=== PATIENT | female | born 1980 | race Caucasian/White ===

== ENCOUNTER 2020-04-09 10:32 | Emergency (ER) | payer BC ==
[2020-04-09 10:44] VITALS: BP 156/100
--- NOTE | 2020-04-09 10:57 | ER Document Report ---
ED Medical Screen (RME) - General Stated Complaint: CHEST PAIN Time Seen by Provider: 04/09/20 10:51 Primary Care Provider: NOHEMI ANNE MD [Primary Care Provider] - Follow up as needed - [facility] Notes: 04/09/20 10:56 40-year-old female presents to the emergency room today for evaluation of substernal chest pain that started roughly 20 minutes ago that radiates bilaterally to her back and to her stomach. She does endorse shortness of breath that is worse on exertion, reports that the pain is "crushing", pain is 5/5 earlier, now is 4/5. Denies any nausea vomiting diarrhea, fevers chills. Patient is a non-smoker. She reports her father had multiple MIs, had triple bypass done in May 2019, mother had a minor heart attack in October 2019. Reports she did have a cholecystectomy done in 2017. Does not have any cardiac issues. I have greeted and performed a rapid initial assessment of this patient. A comprehensive ED assessment and evaluation of the patient, analysis of test results and completion of the medical decision making process will be conducted by additional ED providers. PHYSICAL EXAMINATION: GENERAL: Well-appearing, well-nourished and in no acute distress. HEAD: Atraumatic, normocephalic. NECK: Normal range of motion CV: s1, s2 regular LUNGS: No respiratory distress Musculoskeletal: Normal range of motion NEUROLOGICAL: Normal speech, normal gait. SKIN: Warm, Dry, normal turgor, no rashes or lesions noted. The patient was evaluated during a global COVID-19 pandemic and that diagnosis was suspected/considered upon their initial presentation. Their evaluation, treatment and testing was consistent with current guidelines for patients who present with complaints or symptoms and may be related to COVID-19. - Related Data Allergies/Adverse Reactions: Sulfa (Sulfonamide Antibiotics) Allergy (Verified 02/25/13 17:00) Past Medical History Renal/ Medical History: Reports: Hx Kidney Stones - Immunizations Hx Diphtheria, Pertussis, Tetanus Vaccination: Yes Physical Exam - Vital signs Vitals: Temp Pulse Resp BP Pulse Ox 97.8 F 70 20 156/100 H 100 04/09/20 10:40 04/09/20 10:40 04/09/20 10:40 04/09/20 10:40 04/09/20 10:40 Course - Vital Signs Vital signs: Temp Pulse Resp BP Pulse Ox 97.8 F 70 20 156/100 H 100 04/09/20 10:40 04/09/20 10:40 04/09/20 10:40 04/09/20 10:40 04/09/20 10:40 Doctor's Discharge - Discharge Referrals: NOHEMI ANNE MD [Primary Care Provider] - Follow up as needed
[2020-04-09 11:15] LABS: ABSOLUTE BASOPHILS # (AUTO) 0.1 10^3/uL (0.0-0.2); ABSOLUTE EOSINOPHILS # (AUTO) 0.1 10^3/uL (0.0-0.6); ABSOLUTE LYMPHOCYTES (AUTO) 1.8 10^3/uL (0.5-4.7); ABSOLUTE MONOCYTES (AUTO) 0.4 10^3/uL (0.1-1.4); ABSOLUTE NEUT (AUTO) 3.5 10^3/uL (1.7-8.2); EOSINOPHILS % (AUTO) 2.2 % (0-6); LYMPHOCYTES % (AUTO) 30.9 % (13-45); MEAN CORPUSCULAR HEMOGLOBIN 24.2 pg (27.0-33.4); MEAN CORPUSCULAR HGB CONC 32.5 g/dL (32.0-36.0); MEAN CORPUSCULAR VOLUME 74 fl (80-97); MONOCYTES % (AUTO) 6.1 % (3-13); PLATELET COUNT 282 10^3/uL (150-450); RED BLOOD COUNT 5.37 10^6/uL (3.72-5.28); RED CELL DISTRIBUTION WIDTH 16.1 % (11.5-14.0); SEGMENTED NEUTROPHILS % (AUTO) 59.8 % (42-78); TOTAL CELLS COUNTED % (AUTO) 100 %; WHITE BLOOD COUNT 5.8 10^3/uL (4.0-10.5)
--- NOTE | 2020-04-09 11:37 | RADIOLOGY REPORT (SQ) ---
EXAM DESCRIPTION: CHEST SINGLE VIEW IMAGES COMPLETED DATE/TIME: 04/09/2020 11:10 am REASON FOR STUDY: chest pain COMPARISON: None. EXAM PARAMETERS: NUMBER OF VIEWS: One view. TECHNIQUE: Single frontal radiographic view of the chest acquired. RADIATION DOSE: NA LIMITATIONS: None. FINDINGS: LUNGS AND PLEURA: No opacities, masses or pneumothorax. No pleural effusion. MEDIASTINUM AND HILAR STRUCTURES: No masses. Contour normal. HEART AND VASCULAR STRUCTURES: Heart normal in size. Normal vasculature. BONES: No acute findings. HARDWARE: None in the chest. OTHER: No other significant finding. IMPRESSION: 1. NO ACUTE RADIOGRAPHIC FINDING IN THE CHEST. TECHNICAL DOCUMENTATION: JOB ID: [id number] 2010 [employer] All Rights Reserved Reading location - IP/workstation name: [email or web address]
[2020-04-09 11:40] LABS: ALBUMIN 4.2 g/dL (3.5-5.0); ALKALINE PHOSPHATASE 92 U/L (38-126); ANION GAP 5 (5-19); ASPARTATE AMINO TRANSFERASE 59 U/L (14-36); BILIRUBIN,DIRECT 0.1 mg/dL (0.0-0.4); BILIRUBIN,TOTAL 0.7 mg/dL (0.2-1.3); BLOOD UREA NITROGEN 10 mg/dL (7-20); CALCIUM 9.2 mg/dL (8.4-10.2); CARBON DIOXIDE 27 mmol/L (22-30); CHLORIDE 107 mmol/L (98-107); CREATINE KINASE 122 U/L (30-135); GLUCOSE 98 mg/dL (75-110); POTASSIUM 3.9 mmol/L (3.6-5.0); TOTAL PROTEIN 7.1 g/dL (6.3-8.2)
[2020-04-09 11:50] LABS: CREATINE KINASE MB 0.73 ng/mL (<4.55)
[2020-04-09 11:51] LABS: TROPONIN I < 0.012 ng/mL
--- NOTE | 2020-04-09 12:32 | EKG REPORT ---
SEVERITY:- NORMAL ECG - SINUS RHYTHM : Confirmed by: Imer Meyer MD 09-Apr-2020 12:31:45
[2020-04-09] MEDS ORDERED: METOCLOPRAMIDE HCL ORAL SOLN 10 MG/10 ML UDCUP PO ONE (13:23)
[2020-04-09] MEDS ORDERED: LIDOCAINE 2% VISCOUS SOLN 15 ML UDCUP PO ONE (13:23)
[2020-04-09] MEDS ORDERED: MAG HYDROX/AL HYDROX/SIMETH SUSP 30 ML UDCUP PO ONE (13:23)
--- NOTE | 2020-04-09 13:24 | ER Document Report ---
ED General - General Chief Complaint: Shortness Of Breath Stated Complaint: CHEST PAIN Time Seen by Provider: 04/09/20 10:51 Primary Care Provider: LARRY DEE MD [ACTIVE STAFF] - Follow up in 3-5 days MARTIN BERNAL MD [ACTIVE STAFF] - Follow up tomorrow NOHEMI ANNE MD [ACTIVE STAFF] - Follow up as needed - [facility] Notes: Patient is a 40-year-old female with a past medical history of PCOS who presents with chest pain. Patient states symptoms began this morning at work around 10 AM. She states that she was eating a protein bar and just finished half a cup of coffee and developed tightness in her chest that was sudden. She states it radiated down to her upper stomach. She tried to walk it off but the symptoms would not resolve. She also drink water. Her boss suggested she go to the ER. Patient states she has some discomfort with trying to take a deep breath in. She feels like she cannot take a deep breath due to pain. She denies any shortness of breath. No cough or recent illnesses. No fevers or chills. Patient states she has never had pain like this before. She is a former smoker and quit 8 years ago. Patient has a family history of heart disease. She denies high cholesterol or high blood pressure. She has never had a DVT or PE. She denies any leg swelling. She has had several long car rides recently within the last month. Patient mentions she has had gastritis before and had her gallbladder removed. This feels somewhat different than that. - Related Data Allergies/Adverse Reactions: Sulfa (Sulfonamide Antibiotics) Allergy (Verified 02/25/13 17:00) Home Medications: OTC MVI Past Medical History - General Information source: Patient - Social History Smoking Status: Former Smoker Chew tobacco use (# tins/day): No Frequency of alcohol use: Rare Drug Abuse: None Family History: Reviewed & Not Pertinent Renal/ Medical History: Reports: Hx Kidney Stones - Immunizations Hx Diphtheria, Pertussis, Tetanus Vaccination: Yes Review of Systems - Review of Systems Notes: CONSTITUTIONAL: No fever, fatigue or weight loss. SKIN: No rash. HENT: No congestion, ear pain, or sore throat. ENDOCRINE: No thyroid problems. No polyuria or polydipsia. CARDIOVASCULAR: No chest pain or edema. RESPIRATORY: No cough, shortness of breath, congestion. Positive for chest tightness. GASTROINTESTINAL: No nausea, vomiting, bloody stools or diarrhea. Positive for epigastric pain. GENITOURINARY: No dysuria. MUSCULOSKELETAL: No joint pain or swelling. NEUROLOGIC: No seizures. No headache, focal weakness or sensory changes. HEMATOLOGIC: No unusual bruising or bleeding. PSYCHIATRIC: No depression or anxiety. Physical Exam - Vital signs Vitals: Temp Pulse Resp BP Pulse Ox 97.8 F 70 20 156/100 H 100 04/09/20 10:40 04/09/20 10:40 04/09/20 10:40 04/09/20 10:40 04/09/20 10:40 - General General appearance: Appears well In distress: None Notes: VITAL SIGNS: Within normal limits. GENERAL: No acute distress, non-toxic appearance. HEAD: Normal with no signs of head trauma. EYES: Conjunctiva normal, no discharge. EARS: Hearing grossly intact. NOSE: Normal. NECK: Normal range of motion, no tenderness, supple CHEST: Clear breath sounds bilaterally. No wheezes, rales, or rhonchi. CARDIAC: Regular rate and rhythm. S1 and S2, without murmurs, gallops, or rubs. VASCULAR: No Edema. Strong bilateral radial pulses. ABDOMEN: Normal and soft. No significant tenderness to epigastric area. No guarding or rigidity. MUSCULOSKELETAL: Good range of motion of all major joints. Extremities without clubbing, cyanosis or edema. NEUROLOGICAL: Alert and oriented x 3. No focal sensory or strength deficits. Speech normal. Follows commands appropriately. PSYCHIATRIC: Normal Affect, judgement and mood. SKIN: Normal appearance with no rashes or lesions. Course - Re-evaluation Re-evalutation: 04/09/20 13:33 Patient appears well on exam. She is resting comfortably. So far, her work-up is unremarkable. I will add a D-dimer as she recently had a long car travel. Patient will be tried on a GI cocktail. 04/09/20 20:10 She had a positive lipase. She did mention she had pancreatitis before from gallstones but her gallbladder was removed during this episode in 2018. I did discuss with Dr. Bernal from GI. He recommended I obtain an ultrasound of her right upper quadrant. He states that if this is normal, she can likely be discharged home on clear liquids and pain control as patient is not having any significant pain and is resting comfortably and is tolerating liquids in the ER. Her ultrasound had a normal CBD. 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 I discussed this with the patient. She states that she has seen nephrology for this. 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 Her urine does not show an infection. I did recommend she follow-up with Dr. Dee again about this. I also recommended urology but she states she would just rather see nephrology as she is already seen urology in the past and was referred to nephrology. I did offer her admission for pain control and IV fluids but patient declined. She stated she can go home and is comfortable being managed as an outpatient. I told her to call GI first thing tomorrow morning for follow-up. Patient was given hydrocodone and Zofran. She was told to eat clear liquids. She is very agreeable to the plan. She will return for any worsening pain. She is in no acute distress. She is resting comfortably. Patient is tolerating water in the ER. - Vital Signs Vital signs: Temp Pulse Resp BP Pulse Ox 97.8 F 70 20 156/100 H 100 04/09/20 10:40 04/09/20 10:40 04/09/20 10:40 04/09/20 10:40 04/09/20 10:52 - Laboratory Results Result Diagrams: 04/09/20 11:05 04/09/20 11:05 Laboratory Results Interpreted: 04/09/20 04/09/20 04/09/20 11:05 11:05 11:05 RBC 5.37 H MCV 74 L MCH 24.2 L RDW 16.1 H AST 59 H Lipase 4976.9 H Urine Ketones Urine Blood Ur Leukocyte Esterase 04/09/20 18:30 RBC MCV MCH RDW AST Lipase Urine Ketones TRACE H Urine Blood SMALL H Ur Leukocyte Esterase TRACE H Critical Laboratory Results Reviewed: No Critical Results - Radiology Results Critical Radiology Results Reviewed: No Critical Results - EKG Interpretation by Me EKG shows normal: Sinus rhythm Rate: Normal Rhythm: NSR When compared to previous EKG there are: Previous EKG unavailable Additional EKG results interpreted by me: 04/09/20 13:34 Sinus rhythm at a rate of 68. QTc 422. No acute ST changes. Artifact present. No previous EKG immediately available for comparison. Discharge - Discharge Clinical Impression: Epigastric pain Pancreatitis Qualifiers: Chronicity: acute Pancreatitis type: unspecified pancreatitis type Acute pancreatitis complication: no infection or necrosis Qualified Code(s): K85.90 - Acute pancreatitis without necrosis or infection, unspecified Condition: Stable Disposition: HOME, SELF-CARE Instructions: Pancreatitis ([facility]) Additional Instructions: Please eat a liquid diet until you feel better. Follow-up with GI. Please call their office first thing tomorrow morning for an appointment. Return to the ER immediately for any fevers, chills, nausea, vomiting, worsening symptoms. 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 Prescriptions: Ondansetron [Zofran Odt 4 mg Tablet] 4 mg PO Q6H PRN 7 Days #10 tab.rapdis PRN Reason: Referrals: NOHEMI ANNE MD [ACTIVE STAFF] - Follow up as needed LARRY DEE MD [ACTIVE STAFF] - Follow up in 3-5 days MARTIN BERNAL MD [ACTIVE STAFF] - Follow up tomorrow
[2020-04-09] MEDS ORDERED: NORMAL SALINE 1000 ML 1,000 ML IV ONE (14:53)
--- NOTE | 2020-04-09 17:39 | RADIOLOGY REPORT (SQ) ---
EXAM DESCRIPTION: U/S ABDOMEN LTD W/DOPPLER IMAGES COMPLETED DATE/TIME: 04/09/2020 5:12 pm REASON FOR STUDY: high lipase, hx of cholecystectomy COMPARISON: None. TECHNIQUE: Dynamic and static grayscale images acquired of the abdomen and recorded on PACS. Additio nal selected color Doppler and spectral images recorded. LIMITATIONS: None. FINDINGS: PANCREAS: No masses. Visualized pancreatic duct normal caliber. LIVER: Increased echogenicity. No masses. LIVER VASCULATURE: Normal directional flow of the main portal vein and hepatic veins. GALLBLADDER: Surgically absent. ULTRASOUND-DETECTED BARAHONA'S SIGN: Not applicable. INTRAHEPATIC DUCTS AND COMMON DUCT: CBD and intrahepatic ducts normal caliber. No filling defects. AORTA: No aneurysm. RIGHT KIDNEY: Normal size, 13 cm. Normal echogenicity. No solid or suspicious masses. Moderate hydr onephrosis in the upper calices. No calcifications. PERITONEAL AND RIGHT PLEURAL SPACE: No ascites or effusions. OTHER: No other significant findings. IMPRESSION: 1. Hepatic steatosis. 2. 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 TECHNICAL DOCUMENTATION: JOB ID: [id number] 2010 [employer]- All Rights Reserved Reading location - IP/workstation name: [email or web address]
[2020-04-09 18:56] LABS: APPEARANCE,URINE CLEAR; BILIRUBIN,URINE NEGATIVE (NEGATIVE); COLOR,URINE YELLOW; GLUCOSE, URINE NEGATIVE (NEGATIVE); KETONES,URINE TRACE mg/dL (NEGATIVE); LEUKOCYTE ESTERASE,URINE TRACE (NEGATIVE); NITRITE,URINE NEGATIVE (NEGATIVE); PROTEIN,URINE NEGATIVE (NEGATIVE); URINE SPECIFIC GRAVITY 1.012; UROBILINOGEN,URINE NEGATIVE mg/dL (<2.0)
[2020-04-09] MEDS ORDERED: HYDROCODONE/ACETAMINOPHEN 5-325 MG (6 TAB/ER DISP) PO PRN (19:10)
== END 2020-04-09 19:00 | disposition home or self-care (01) ==
LOC: ER 10:32
DX: K85.90 Acute pancreatitis without necrosis or infection, unspecified (principal); K76.0 Fatty (change of) liver, not elsewhere classified; N13.30 Unspecified hydronephrosis; R10.13 Epigastric pain; R07.89 Other chest pain; Z87.891 Personal history of nicotine dependence; Z79.899 Other long term (current) drug therapy; Z90.49 Acquired absence of other specified parts of digestive tract; Z88.2 Allergy status to sulfonamides; Z82.49 Family history of ischemic heart disease and other diseases of the circulatory system
CPT/HCPCS: 93005; 99285; 96360; 36415; 87086; 82553; 82550; 84702; 83690; 85025; 80053; 81001; 84484; 85379; 71045; 76705; 93976; 93010; J3490; J7030

== ENCOUNTER → 2020-04-11 | Outpatient (CLI) | payer BC | LOC: OD 14:54 | PROVIDERS: ATTEND Nurse Practitioner Family | DX: K85.90 Acute pancreatitis without necrosis or infection, unspecified (principal) | CPT/HCPCS: 36415 ==

== ENCOUNTER 2020-04-18 08:10 | Day surgery (SDC) | payer BC ==
[~2020-04-18 08:10] MED LIST: PROPOFOL INJ 200 MG/20 ML VIAL IV ONE
--- NOTE | 2020-04-18 09:21 | Operative Report ---
Operative Report DATE OF SURGERY: 04/18/20 Operative Report: The risks benefits and alternatives of the procedure explained to the patient in detail and informed consent is obtained.A GIF Olympus video scope was inserted into the patient's mouth and hypopharynx, the esophagus is identified intubated and insufflated, the scope was then advanced through the esophagus stomach and duodenum ,retroflexion maneuver is done, the esophagus stomach and first and second portions of the duodenum examined PREOPERATIVE DIAGNOSIS: Epigastric pain rule out peptic ulcer disease POSTOPERATIVE DIAGNOSIS: Gastritis with small gastric erosions status post biopsy OPERATION: EGD with biopsy SURGEON: MARTIN TORRES ANESTHESIA: LMAC TISSUE REMOVED OR ALTERED: As noted above. COMPLICATIONS: None. ESTIMATED BLOOD LOSS: None. INTRAOPERATIVE FINDINGS: As noted above. PROCEDURE: Patient tolerated the procedure well. No immediate postprocedure complications are noted. Patient is discharged in good condition. Discharge date 04/18/2020. Discharge diet: Regular. Discharge activity: Regular. 2 to 3-week follow-up to discuss findings. Patient is instructed to call the office or proceed to the emergency room should there be any further problems or questions. Wait on the pathology.
[2020-04-18 09:47] VITALS: BP 105/76
== END 2020-04-18 09:47 | disposition home or self-care (01) ==
LOC: END 08:10
PROVIDERS: ATTEND Internal Medicine Gastroenterology
DX: K29.50 Unspecified chronic gastritis without bleeding (principal); K25.9 Gastric ulcer, unspecified as acute or chronic, without hemorrhage or perforation; E07.9 Disorder of thyroid, unspecified; Z90.49 Acquired absence of other specified parts of digestive tract; K76.0 Fatty (change of) liver, not elsewhere classified; M79.7 Fibromyalgia; E66.9 Obesity, unspecified; Z87.891 Personal history of nicotine dependence; Z79.899 Other long term (current) drug therapy; Z79.890 Hormone replacement therapy; Z68.38 Body mass index [BMI] 38.0-38.9, adult; Z87.19 Personal history of other diseases of the digestive system
CPT/HCPCS: 43239; 88305; 88342; J2704